=== PATIENT | female | born 1975 | race Caucasian/White ===

== ENCOUNTER 2023-06-14 13:17 | Emergency (ER) | payer OTHER ==
[2023-06-14 13:30] VITALS: BP 166/90; PULSE 109; RESP 18; TEMP 97.9; BMI 34.9
[2023-06-14] MEDS ORDERED: FAMOTIDINE 20 MG TABLET PO ONE (13:51)
[2023-06-14] MEDS ORDERED: DEXAMETHASONE SOD PHOSPHATE 10 MG/1 ML VIAL IM ONE (13:51)
[2023-06-14] MEDS ORDERED: diphenhydrAMINE HCL 25 MG CAPSULE (FP) PO ONE ×2 (13:52→13:56)
[2023-06-14] MEDS ORDERED: hydrOXYzine PAMOATE 25 MG CAPSULE (FP) PO ONE ×2 (13:52→13:56)
[2023-06-14] MEDS ORDERED: DEXAMETHASONE SOD PHOSPHATE 10 MG/1 ML VIAL ONE (13:57)
[2023-06-14] MEDS ORDERED: FAMOTIDINE 20 MG TABLET ONE (13:57)
== END 2023-06-14 14:08 | disposition home or self-care (01) ==
LOC: JERFT 13:17 → JER 13:17 → JERFT 14:08
PROC: 3E023GC Introduction of Other Therapeutic Substance into Muscle, Percutaneous Approach (ICD-10-PCS; principal; 2023-06-14)
DX: R21 Rash and other nonspecific skin eruption (principal); T78.40XA Allergy, unspecified, initial encounter; L50.0 Allergic urticaria
CPT/HCPCS: 99284-25; J1100

== ENCOUNTER 2023-11-29 07:21 | Emergency (ER) | payer BC, OTHER ==
[2023-11-29 07:28] VITALS: BP 158/92; PULSE 67; RESP 18; TEMP 97; BMI 34.9
== END 2023-11-29 10:58 | disposition home or self-care (01) ==
LOC: JER 07:21
DX: M25.562 Pain in left knee (principal)
CPT/HCPCS: 73562-TC-LT-FY; 73610-TC-LT-FY; 73630-TC-LT; 93971-TC; 99284-25